=== PATIENT | male | born 1980 | race Hispanic/Latino ===

== ENCOUNTER 2018-09-07 15:17 | Emergency (ER) | payer SELFPAY ==
[2018-09-07 15:39] VITALS: BP 161/102
--- NOTE | 2018-09-07 15:44 | Emergency Department Report ---
Blank Doc - Documentation Documentation: Rash all over that itchiness. No fever or chill. This initial assessment diagnostic orders/clinical plan/treatment (s) is/Are subject change based on patient's health status, clinical progression and re- assessment by fellow clinical providers in the ED. Further treatment and work-up at subsequent clinical providers discretion. Patient/guardians urged not to elope from s their condition may be serious if not clinically assessed and managed. Inital order include:
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
[2018-09-07] MEDS ORDERED: DECADRON IM ONE (17:16)
== END 2018-09-07 17:53 | disposition home or self-care (01) ==
LOC: ED 15:17
DX: T14.8XXA Other injury of unspecified body region, initial encounter (principal); W57.XXXA Bitten or stung by nonvenomous insect and other nonvenomous arthropods, initial encounter; Y93.89 Activity, other specified; Y92.89 Other specified places as the place of occurrence of the external cause; Y99.8 Other external cause status
CPT/HCPCS: 96372; 99282; J1100

== ENCOUNTER 2019-01-15 01:00 | Emergency (ER) | payer SELFPAY ==
[2019-01-15 01:15] VITALS: BP 183/109
== END 2019-01-15 06:20 | disposition left against medical advice (07) ==
LOC: ED 01:00
DX: R21 Rash and other nonspecific skin eruption (principal); Z53.21 Procedure and treatment not carried out due to patient leaving prior to being seen by health care provider

== ENCOUNTER 2019-01-19 09:29 | Emergency (ER) | payer SELFPAY ==
[2019-01-19 09:40] VITALS: BP 171/86
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
== END 2019-01-19 11:06 | disposition home or self-care (01) ==
LOC: ED 09:29
DX: L03.90 Cellulitis, unspecified (principal); L98.9 Disorder of the skin and subcutaneous tissue, unspecified; F17.200 Nicotine dependence, unspecified, uncomplicated; F12.10 Cannabis abuse, uncomplicated; Z98.890 Other specified postprocedural states